=== PATIENT | female | born 1970 | race African-American/Black ===

== ENCOUNTER 2020-10-04 14:08 | Emergency (ER) | payer BC, SELFPAY ==
[2020-10-04 14:16] VITALS: BP 130/78; PULSE 106; RESP 16; TEMP 36.6; O2SAT 100
--- NOTE | 2020-10-04 14:25 | ED.GENADULT ---
HPI - General Adult General Chief complaint: Back Pain/Injury Stated complaint: BACK PAIN Time Seen by Provider: 10/04/20 14:25 Source: patient and RN notes reviewed Mode of arrival: ambulatory Limitations: no limitations History of Present Illness HPI narrative: 50 year old female who presents to [facility] with complaints of one week duration of lower back pain on the right radiating into the buttock and down her posterior right leg. Patient states that she has history of chronic low back pain and has not had any recent injury or increase of her normal activity. Patient states that she takes neurontin for her history of neuropathy and she has been taking Flexeril at night lately due to her pain. Patient denies any saddle paraesthesia with no difficulty with bowel or bladder function. Patient states some tingling and numbness in her feet related to her neuropathy with pedal pulses of good quality to her bilateral feet. Onset (ago): week(s) (1) Location: back and right Radiation: back and other (to posterior aspect of right leg) Severity: similar to prior episodes Severity scale (1-10): 9 Relieving factors: rest Exacerbating factors: movement Associated symptoms: denies other symptoms Treatments prior to arrival: other (muscle relaxer) Related Data Home Medications Medication Instructions Recorded Confirmed cyclobenzaprine 5 mg PO TID PRN 07/29/19 07/29/19 gabapentin 400 mg PO TID 07/29/19 07/29/19 Allergies Allergy/AdvReac Type Severity Reaction Status Date / Time No Known Allergies Allergy Verified 07/29/19 12:06 Review of Systems Review of Systems: Narrative: CONSTITUTIONAL: Denies fever, chills, or sweats. EYES: Denies visual changes, redness, or discharge. ENT: Denies rhinorrhea, congestion, sore throat, or otalgia. CARDIOVASCULAR: Denies chest pain, palpitations, or edema. RESPIRATORY: Denies cough or dyspnea. GASTROINTESTINAL: Denies abdominal pain, nausea, vomiting, or diarrhea. GENITOURINARY: Denies dysuria or hematuria. SKIN: Denies rash or itching. MUSCULOSKELETAL: Positive right lower back pain radiating down back of leg to foot, no specific joint pain, or myalgia. NEUROLOGIC: Denies headache, numbness, or weakness. PSYCHIATRIC: Denies anxiety or depression. All systems reviewed & are unremarkable except as noted in HPI and below PMFSH Past Medical History Medical History (Updated 10/04/20 @ 14:39 by Chelsie East NP) CAD (coronary artery disease) DVT (deep vein thrombosis) in H/O paroxysmal supraventricular tachycardia Peripheral neuropathy Surgical History Surgical History (Updated 07/30/19 @ 09:14 by Chelsie East NP) History of cardiac radiofrequency ablation Family History Family History (Updated 07/30/19 @ 09:15 by Chelsie East NP) Father Hypertension Social History Social History (Updated 10/04/20 @ 17:33 by Chelsie East NP) Smoking status: Unknown if ever smoked Alcohol intake: current Alcohol use details: social Substance use: never Living arrangements: with family Additional occupation/education comments: RN at [employer] Gender identity (if verbalized by the patient): Female Comments At time of signature, agree with nursing past medical, surgical, social and family history. There is no relevant family history pertinent to the presenting complaint Exam Narrative: Exam Narrative: GENERAL: Well-appearing, well-nourished, and in no acute distress. HEAD: Normocephalic, atraumatic. EYES: PERRLA and EOMI. ENT: Nares clear, no rhinorrhea or epistaxis. Mucous membranes moist. NECK: Supple.no lymphadenopathy CHEST: Clear to auscultation. No respiratory distress.SAO2 100% on room air HEART: Regular rate and rhythm. No murmur heard. Normal peripheral pulses. ABDOMEN: Soft, nontender, nondistended, normal active bowel sounds. EXTREMITIES: Normal range of motion. No edema pain in right SI region going down her right leg posteriorly to ankle. P
== END 2020-10-04 14:46 | disposition home or self-care (01) ==
PROVIDERS: Emergency Provider Registered Nurse
DX: M54.31 Sciatica, right side (principal); I25.10 Atherosclerotic heart disease of native coronary artery without angina pectoris; Z86.718 Personal history of other venous thrombosis and embolism; G62.9 Polyneuropathy, unspecified
CPT/HCPCS: 99213; G0463